=== PATIENT | male | born 1995 | race Caucasian/White ===

== ENCOUNTER 2016-12-04 16:40 | Emergency (ER) | payer OTHER ==
--- NOTE | 2016-12-04 16:59 | CPEKG ---
Heart Rate: 70 RR Interval: 857 P-R Interval: 124 QRSD Interval: 98 QT Interval: 404 QTC Interval: 436 P Ralston: 65 QRS Ralston: 63 T Wave Ralston: 32 EKG Severity - NORMAL ECG - EKG Impression: SINUS RHYTHM EKG Impression: ST ELEV, PROBABLE NORMAL EARLY REPOL PATTERN Electronically Signed By: Francis Laboy 04-Dec-2016 20:53:09
--- NOTE | 2016-12-04 17:20 | EDPHY ---
H & P Time Seen by Provider: 12/04/16 17:13 HPI/ROS: Chief complaint. Seizure HPI. 21-year-old male with known seizure disorder had a seizure this afternoon. He was at his [employer] house and it was witnessed by for [place] brothers. He sustained an abrasion to his forehead and bit his tongue. His last seizure was December 2014. He claims compliance with his Lamictal. Otherwise not sick, recent head injury, lack of sleep. ROS Constitutional. no fever/chills, no weakness Eyes. no problems with vision ENT. Bit tongue Cardiovascular. no chest pain Respiratory. no shortness of breath, no cough Abdominal. no abdominal pain, no nausea/vomiting, no diarrhea . no problems urinating MS. no calf pain/swelling, no neck/back pain, no joint pain Skin. Abrasion forehead Lymph. no swollen glands Neuro. Seizure Past Medical/Surgical History: Seizure disorder Social History: Single, nonsmoker, no alcohol Smoking Status: Never smoked Physical Exam: General Appearance: Alert well-developed male mild distress vital signs are stable Eyes: Pupils equal and round no pallor or injection. ENT, bitten tongue on the right side Respiratory: There are no retractions, lungs are clear to auscultation. Cardiovascular: Regular rate and rhythm. Gastrointestinal: Abdomen is soft and nontender, no masses, bowel sounds normal. Neurological: Awake and alert, sensory and motor exams grossly normal. Skin: Abrasion right forehead Musculoskeletal: Neck is supple nontender. Extremities symmetrical, full range of motion. Psychiatric: Patient is oriented X 3, there is no agitation. Alert and conversational Constitutional: Initial Vital Signs Temperature (C) 36.5 C 12/04/16 16:40 Heart Rate 84 12/04/16 16:40 Respiratory Rate 18 12/04/16 16:40 Blood Pressure 116/71 12/04/16 16:40 O2 Sat (%) 95 12/04/16 16:40 O2 Delivery Mode Room Air Allergies/Adverse Reactions: No Known Allergies Allergy (Verified 12/04/16 16:47) Home Medications: Medication Instructions Recorded Citalopram 12/04/16 LAMOTRIGINE 12/04/16 Medical Decision Making Procedures: IV normal saline, seizure precaution ED Course/Re-evaluation: Re-evaluation at 6:30 p.m.. Patient is alert, oriented, conversational. He has a friend here to give him a ride home. The patient and I discussed laboratory evaluation, seizure precautions, importance of follow-up and further evaluation as well as criteria for return. He expresses understanding and agreement Differential Diagnosis: Seizure and a patient with known seizure disorder. The cause of his seizure today is unclear. I considered substance ingestion as well as withdrawal, fatigue, illness - Data Points Laboratory Results: Laboratory Results 12/04/16 16:49 12/04/16 16:49 Sodium 140 mEq/L (134-144) Potassium 4.4 mEq/L (3.5-5.2) Chloride 105 mEq/L (97-110) Carbon Dioxide 17 L mEq/l (22-31) Anion Gap 18 mEq/L (8-16) BUN 15 mg/dL (7-23) Creatinine 1.4 H mg/dL (0.7-1.3) Estimated GFR > 60 Glucose 147 H mg/dL (70-100) Calcium 9.3 mg/dL (8.5-10.4) Departure - Departure Disposition: Home, Routine, Self-Care Clinical Impression: Seizure Condition: Good Instructions: Epilepsy (ED) Additional Instructions: Continue your regular dose of Lamictal. Regular meals and get plenty of sleep. Return for another seizure. No driving or other dangerous activity until seen by Neurology. Call your neurologist tomorrow to arrange follow-up appointment Referrals: OUT OF STATE,. [Primary Care Provider] - As per Instructions Adriano Siegel, DO [Medical Doctor] - 2-3 days without fail
[2016-12-04 17:47] LABS: ANION GAP 18 mEq/L (8-16); CALCIUM 9.3 mg/dL (8.5-10.4); CARBON DIOXIDE 17 mEq/l (22-31); CHLORIDE 105 mEq/L (97-110); CREATININE 1.4 mg/dL (0.7-1.3); GLOMERULAR FILTRATION RATE > 60; GLUCOSE 147 mg/dL (70-100); POTASSIUM 4.4 mEq/L (3.5-5.2); SODIUM 140 mEq/L (134-144)
[2016-12-04 18:45] VITALS: BP 101/50; PULSE 69; RESP 14; TEMP 98.4; O2SAT 99
== END 2016-12-04 18:45 | disposition home or self-care (01) ==
LOC: EDUNIT#
DX: G40.909 Epilepsy, unspecified, not intractable, without status epilepticus (principal)

== ENCOUNTER 2017-03-06 02:30 | Emergency (ER) | payer OTHER ==
--- NOTE | 2017-03-06 02:32 | EDPHY ---
H & P HPI/ROS: HPI CHIEF COMPLAINT: M1 hold by [employer] HISTORY OF PRESENT ILLNESS: This patient very pleasant 22-year-old male significant past medical history for epilepsy and anxiety and depression presents emergency room on M1 hold by police for self-harm inflicted cutting to his legs. This patient presents emergency room and tells me that he drank alcohol this evening became upset cut his right inner thigh with a razor blade. He denies SI. Denies HI. He tells me he has been under lot of stress. He has done self cutting in the past. Denies ingestion of any drugs except for drinking alcohol this evening. Patient tells me tetanus shot is up-to-date. Past Medical History: Epilepsy, anxiety, depression Past Surgical History: No recent surgical history Social History: Drank alcohol this evening reports to me multiple shots 9 of vodka Family History: Noncontributory ROS REVIEW OF SYSTEMS: A comprehensive 10 point review of systems is otherwise negative aside from elements mentioned in the history of present illness. Exam Constitutional smells of alcohol, triage nursing summary reviewed, vital signs reviewed, awake/alert. Eyes normal conjunctivae and sclera, EOMI, PERRLA. HENT normal inspection, atraumatic, moist mucus membranes, no epistaxis, neck supple/ no meningismus, no raccoon eyes. Respiratory clear to auscultation bilaterally, normal breath sounds, no respiratory distress, no wheezing. Cardiovascular rate normal, regular rhythm, no murmur, no edema, distal pulses normal. Gastrointestinal soft, non-tender, no rebound, no guarding, normal bowel sounds, no distension, no pulsatile mass. Genitourinary no CVA tenderness. Musculoskeletal no midline vertebral tenderness, full range of motion, no calf swelling, no tenderness of extremities, no meningismus, good pulses, neurovascularly intact. Skin multiple superficial lacerations to the right inner thigh that does not need repair, pink, warm, & dry, no rash Neurologic awake, alert and oriented x 3, AAOx3, moves all 4 extremities equally, motor intact, sensory intact, CN II-XII intact, normal cerebellar, normal vision, normal speech. Psychiatric flat affect Heme/Lymph/Immune no lymphadenopathy. Differential Diagnosis: Includes but is not limited to in a particular order: acute alcohol intoxication, depression, self harm, SI, mood d/o. Medical Decision Making: Patient had an IV established will obtain blood draw for medical clearance. Patient need mental health evaluation. He is on M1 hold by [facility]. Re-evaluation: 0620AM: No acute events overnight. Patient still sobering from alcohol. Will then need mental health evaluation. 0700AM: Patient has been seen and evaluated by mental health [place], patient has good psychiatric care and follow-up. Patient does not meet inpatient psychiatric criteria is not suicidal. Dr. Butterfield was consulted psychiatry about this case and agrees to lift the hold. I did go and discuss this with the patient he agrees for discharge he is, cooperative he does not want hurt himself or anybody else. He denies being suicidal. Does have depression. Has good follow-up plan in place. Agrees for discharge Source: Patient, Police - Medical/Surgical History Hx Asthma: No Hx Chronic Respiratory Disease: No Hx Diabetes: No Hx Cardiac Disease: No Hx Renal Disease: No Hx Cirrhosis: No Hx Alcoholism: No Hx HIV/AIDS: No Hx Splenectomy or Spleen Trauma: No Other PMH: seizures disorder - Social History Smoking Status: Never smoked Constitutional: Initial Vital Signs Temperature (C) 36.6 C 03/06/17 02:48 Heart Rate 88 03/06/17 02:48 Respiratory Rate 16 03/06/17 02:48 Blood Pressure 129/89 H 03/06/17 02:48 O2 Sat (%) 95 03/06/17 02:48 O2 Delivery Mode Room Air Allergies/Adverse Reactions: No Known Allergies Allergy (Verified 12/04/16 16:47) Home Medications: Medication Instructions Recorded Citalopram 20 mg DAILY 12/04/16 LAMOTRIGINE 400 mg DAILY 12/04/16 Ativan PRN 03/06/17 Medical Decision Making - Data Points Laboratory Results: Laboratory Results 03/06/17 03:02 03/06/17 03:02 03/06/17 03/06/17 03/06/17 04:13 03:02 03:02 WBC RBC Hgb Hct MCV MCH MCHC RDW Plt Count MPV Neut % (Auto) Lymph % (Auto) Holt % (Auto) Eos % (Auto) Baso % (Auto) Nucleat RBC Rel Count Absolute Neuts (auto) Absolute Lymphs (auto) Absolute Monos (auto) Absolute Eos (auto) Absolute Basos (auto) Absolute Nucleated RBC Immature Gran % Immature Gran # Sodium 144 mEq/L mEq/L (134-144) Potassium 4.2 mEq/L mEq/L (3.5-5.2) Chloride 106 mEq/L mEq/L (97-110) Carbon Dioxide 20 mEq/l L mEq/l (22-31) Anion Gap 18 mEq/L H mEq/L (8-16) BUN 9 mg/dL mg/dL (7-23) Creatinine 0.9 mg/dL mg/dL (0.7-1.3) Estimated GFR > 60 Glucose 111 mg/dL H mg/dL (70-100) Calcium 9.1 mg/dL mg/dL (8.5-10.4) Salicylates < 1.0 mg/dL L mg/dL (2.0-20.0) Urine Opiates Screen NEGATIVE (NEGATIVE) Acetaminophen < 10 mcg/mL L mcg/mL (10.0-30.0) Urine Barbiturates NEGATIVE (NEGATIVE) Lamotrigine Pending Ur Phencyclidine Scrn NEGATIVE (NEGATIVE) Ur Amphetamine Screen NEGATIVE (NEGATIVE) U Benzodiazepines Scrn NEGATIVE (NEGATIVE) Urine Cocaine Screen NEGATIVE (NEGATIVE) U Marijuana (THC) Screen NON-NEGATIVE H (NEGATIVE) Ethyl Alcohol 173 mg/dL H mg/dL (0-10) 03/06/17 03:02 WBC 5.31 10^3/uL 10^3/uL (3.80-9.50) RBC 5.66 10^6/uL 10^6/uL (4.40-6.38) Hgb 17.5 g/dL g/dL (13.7-17.5) Hct 49.6 % % (40.0-51.0) MCV 87.6 fL fL (81.5-99.8) MCH 30.9 pg pg (27.9-34.1) MCHC 35.3 g/dL g/dL (32.4-36.7) RDW 12.4 % % (11.5-15.2) Plt Count 176 10^3/uL 10^3/uL (150-400) MPV 9.4 fL fL (8.7-11.7) Neut % (Auto) 50.2 % % (39.3-74.2) Lymph % (Auto) 38.4 % % (15.0-45.0) Holt % (Auto) 9.8 % % (4.5-13.0) Eos % (Auto) 0.6 % % (0.6-7.6) Baso % (Auto) 0.4 % % (0.3-1.7) Nucleat RBC Rel Count 0.0 % % (0.0-0.2) Absolute Neuts (auto) 2.67 10^3/uL 10^3/uL (1.70-6.50) Absolute Lymphs (auto) 2.04 10^3/uL 10^3/uL (1.00-3.00) Absolute Monos (auto) 0.52 10^3/uL 10^3/uL (0.30-0.80) Absolute Eos (auto) 0.03 10^3/uL 10^3/uL (0.03-0.40) Absolute Basos (auto) 0.02 10^3/uL 10^3/uL (0.02-0.10) Absolute Nucleated RBC 0.00 10^3/uL 10^3/uL (0-0.01) Immature Gran % 0.6 % % (0.0-1.1) Immature Gran # 0.03 10^3/uL 10^3/uL (0.00-0.10) Sodium Potassium Chloride Carbon Dioxide Anion Gap BUN Creatinine Estimated GFR Glucose Calcium Salicylates Urine Opiates Screen Acetaminophen Urine Barbiturates Lamotrigine Ur Phencyclidine Scrn Ur Amphetamine Screen U Benzodiazepines Scrn Urine Cocaine Screen U Marijuana (THC) Screen Ethyl Alcohol Departure - Departure Disposition: Home, Routine, Self-Care Clinical Impression: Depression Qualifiers: Depression Type: unspecified Qualified Code(s): F32.9 - Major depressive disorder, single episode, unspecified Alcohol intoxication Qualifiers: Complication of substance-induced condition: uncomplicated Qualified Code(s): F10.120 - Alcohol abuse with intoxication, uncomplicated Condition: Fair Instructions: Depression (ED) Additional Instructions: 1. Return to the emergency room immediately if he developed thoughts of wanting to hurt herself or anybody else. 2. Please also follow up with Psychiatry outpatient. Referrals: OUT OF,STATE [Other] - As per Instructions
[2017-03-06 02:55] VITALS: TEMP 97.9
[2017-03-06 03:14] LABS: % IMMATURE GRANULYOCYTES 0.6 % (0.0-1.1); ABSOLUTE IMMATURE GRANULOCYTES 0.03 10^3/uL (0.00-0.10); ADD DIFF? NO; ADD MORPH? NO; ADD SCAN? NO; ATYPICAL LYMPHOCYTE FLAG 40 (0-99); FRAGMENT RBC FLAG 0 (0-99); HEMATOCRIT 49.6 % (40.0-51.0); HEMOGLOBIN 17.5 g/dL (13.7-17.5); LEFT SHIFT FLG 0 (0-99); LIPEMIA HEMOLYSIS FLAG 90 (0-99); MEAN CELL HEMOGLOBIN 30.9 pg (27.9-34.1); MEAN CELL HEMOGLOBIN CONCENTR. 35.3 g/dL (32.4-36.7); MEAN CELL VOLUME 87.6 fL (81.5-99.8); MEAN PLATELET VOLUME 9.4 fL (8.7-11.7); PLATELET CLUMPS FLAG 0 (0-99); PLATELET COUNT 176 10^3/uL (150-400); RED BLOOD CELL COUNT 5.66 10^6/uL (4.40-6.38); RED CELL DISTRIBUTION WIDTH 12.4 % (11.5-15.2)
[2017-03-06 03:25] LABS: ANION GAP 18 mEq/L (8-16); CALCIUM 9.1 mg/dL (8.5-10.4); CARBON DIOXIDE 20 mEq/l (22-31); CHLORIDE 106 mEq/L (97-110); CREATININE 0.9 mg/dL (0.7-1.3); ETHANOL SERUM 173 mg/dL (0-10); GLOMERULAR FILTRATION RATE > 60; GLUCOSE 111 mg/dL (70-100); POTASSIUM 4.2 mEq/L (3.5-5.2); SALICYLATE < 1.0 mg/dL (2.0-20.0); SODIUM 144 mEq/L (134-144)
[2017-03-06 07:07] VITALS: BP 131/75; PULSE 85; RESP 14; O2SAT 97
== END 2017-03-06 07:06 | disposition home or self-care (01) ==
DX: F32.9 Major depressive disorder, single episode, unspecified (principal); F10.120 Alcohol abuse with intoxication, uncomplicated
CPT/HCPCS: 80175-90; 80305; G0480